=== PATIENT | female | born 1955 | race Caucasian/White ===

== ENCOUNTER → 2018-02-28 | Outpatient (CLI) | payer BC ==
--- NOTE | 2018-03-01 09:36 | RADIOLOGY REPORT (SQ) ---
EXAM DESCRIPTION: MRI RT UPPER JOINT WITHOUT COMPLETED DATE/TIME: 02/28/2018 5:46 pm REASON FOR STUDY: M25.531 PAIN IN RIGHT WRIST M25.531 PAIN IN RIGHT WRIST COMPARISON: None. TECHNIQUE: Right wrist images acquired and stored on PACS. Multiplanar images include fat sensitive sequences as T1, fluid sensitive sequences as FST2/STIR, cartilage sensitive sequences as FSPD, grad ient echo sequences. LIMITATIONS: None. FINDINGS: BONE MARROW: No alteration of signal to suggest marrow replacement. No occult fracture. No large osteophytes. CARPAL ALIGNMENT AND ARTICULATION: Mild ulnar negative variance. Normal capitolunate angle. No widen ing of scapholunate articulation. EFFUSION: There is a small joint effusion best shown on sagittal image 11 and axial images 6-10. SCAPHOLUNATE LIGAMENT: Not well seen, likely torn. There is mild cortical irregularity and minimal s ubcortical edema at the articulation between the proximal scaphoid and lunate bones indicating mild o steoarthritis. No widening of the scapholunate interval. These changes are best shown on coronal im age 10 and sagittal images 8-10. LUNATE-TRIQUETRAL LIGAMENT: Intact without tear. TFC COMPLEX: Ulnar attachments of the triangular fibrocartilage are not well seen coronal T1 images 9 -12 Radial attachments normal. Meniscus intact. Extensor carpi ulnaris tendon normal without tendino lv. EXTRINSIC LIGAMENTS AND DISTAL RADIO-ULNAR JOINT: Dorsal and volar distal RUJ intact without subluxat ion of the distal ulna. There is a small amount of fluid in the distal radioulnar joint. 1-6 EXTENSOR COMPARTMENTS: Normal. Specifically no tendinopathy of the abductor pollicis longus or ex tensor pollicis brevis to suggest de Quervain's Syndrome. CARPAL TUNNEL AND MEDIAN NERVE: Normal volume and morphology of the carpal tunnel proximally at the l evel of the radiocarpal joint and distally at the hook of the hamate. No thickening or signal alterat ion of the median nerve. OTHER: Mild osteoarthritis at the 1st carpometacarpal joint, with joint space narrowing and bony spur ring best shown on coronal image 5. IMPRESSION: Wrist joint effusion, small amount of fluid in the distal radioulnar joint Scapholunate interval preserved. 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
== END ==
LOC: RAD 18:09
PROVIDERS: ATTEND Physician Assistant
DX: M25.531 Pain in right wrist (principal)

== ENCOUNTER 2018-12-16 19:54 | Emergency (ER) | payer BC ==
--- NOTE | 2018-12-17 00:07 | ER Document Report ---
HPI - HPI Patient complains to provider of: cat bite Time Seen by Provider: 12/16/18 23:38 Pain Level: 0 Context: Patient is 63-year-old female presents to the emergency department for a cat bite to her right forearm she sustained last evening around 1800 hrs. States she went to her primary care provider today who put her on Augmentin. States she has taken 1 dose of same medication. States she was told by her primary care provider to come to the emergency room for rabies prophylactic shots. Patient states the cat that bit her is a cat that lives next to her house. States she sees it on her front porch every day. States she bent down to give it food and it bit her right forearm. States animal control has already quarantine the cat. Past medical history: Rheumatoid arthritis, COPD Medications: Prednisone Allergies: None Past Medical History - General Information source: Patient - Social History Smoking Status: Unknown if Ever Smoked Family History: Reviewed & Not Pertinent Vertical Provider Document - CONSTITUTIONAL Agree With Documented VS: Yes Notes: GENERAL: Alert, interacts well. No acute distress. HEAD: Normocephalic, atraumatic. EYES: Pupils equal, round, and reactive to light. Extraocular movements intact. ENT: Oral mucosa moist, tongue midline. NECK: Full range of motion. Supple. Trachea midline. LUNGS: Clear to auscultation bilaterally, no wheezes, rales, or rhonchi. No respiratory distress. HEART: Regular rate and rhythm. No murmur ABDOMEN: Soft, non-tender. Non-distended. Bowel sounds present in all 4 quadrants. EXTREMITIES: Moves all 4 extremities spontaneously. No edema, normal radial and dorsalis pedis pulses bilaterally. No cyanosis. Minor erythema noted 2 cm x 2 cm right posterior proximal forearm with a small scab in the middle. Another area distal to that noted 3 cm x 3 cm with another scab noted in the middle. No fluctuance or induration noted either wounds. BACK: no cervical, thoracic, lumbar midline tenderness. No saddle anesthesia, normal distal neurovascular exam. NEUROLOGICAL: Alert and oriented x3. Normal speech. cranial nerves II through XII grossly intact PSYCH: Normal affect, normal mood. SKIN: Warm, dry, normal turgor. - INFECTION CONTROL TRAVEL OUTSIDE OF THE [place] IN LAST 30 DAYS: No Course - Re-evaluation Re-evalutation: 12/17/18 00:05 Patient's wounds were marked with a surgical marker. Discussed use of Augmentin which patient has with her in the emergency room. Discussed cleaning the wounds and continued care. Discussed close follow-up should the redness, swelling go past surgical marker placed by myself. Cat is quarantined at this time, patient wishes to deny going further with rabies prophylaxis. I feel confident with this decision as cat is currently quarantined by animal control. - Vital Signs Vital signs: Temp Pulse Resp BP Pulse Ox 98.2 F 102 H 20 152/87 H 98 12/16/18 20:50 12/16/18 20:50 12/16/18 20:50 12/16/18 20:50 12/16/18 20:50 Discharge - Discharge Clinical Impression: Cat bite Qualifiers: Encounter type: initial encounter Qualified Code(s): W55.01XA - Bitten by cat, initial encounter Condition: Stable Disposition: HOME, SELF-CARE Instructions: Animal Bites ([facility]) Additional Instructions: As we discussed you have been seen and treated in the emergency department for an animal bite. You should continue taking antibiotics given to you by your primary care provider. You should also make sure you clean the wound with soap and water. Showed that the redness or swelling go beyond the couch I have placed after 48 hours of antibiotic use you should immediately return to the emergency room. This means you may need IV antibiotic treatment. Please make sure if you have any other concerns you follow-up with your primary care provider or return to the emergency room. Referrals: IMANI GUTIERRES MD [Primary Care Provider] - Follow up as needed
[2018-12-17 00:15] VITALS: BP 121/78
== END 2018-12-17 00:15 | disposition home or self-care (01) ==
LOC: ER 19:54
DX: S51.851A Open bite of right forearm, initial encounter (principal); W55.01XA Bitten by cat, initial encounter
CPT/HCPCS: 99283